=== PATIENT | male | born 1995 | race American Indian/Alaskan Native ===

== ENCOUNTER 2017-09-01 22:52 | Emergency (ER) | payer OTHER ==
[2017-09-02] MEDS ORDERED: DUONEB *Not for PRN Use IH ONE (05:03)
[2017-09-02] MEDS ORDERED: DELTASONE PO ONE (05:04)
[2017-09-02] MEDS ORDERED: PROVENTIL IH ONE (05:04)
--- NOTE | 2017-09-02 05:04 | Emergency Department Report ---
- General Chief Complaint: Upper Respiratory Infection Stated Complaint: COUGHING Time Seen by Provider: 09/02/17 04:21 Source: patient Mode of arrival: Ambulatory Limitations: No Limitations - History of Present Illness Initial Comments: 22-year-old male presents with complaint of productive cough with yellow green mucus. Patient is a smoker. Denies any sore throat chest pain or significant shortness of breath. States he has multiple sick contacts at home. Denies nausea or vomiting. Has not received flu vaccine this season. Speaking in full sentences in no audible wheezing or stridor Complaint: cough Onset/Timin -: days(s) Context: sick contacts Associated Symptoms: denies other symptoms, cough Treatments Prior to Arrival: none - Related Data Previous Rx's Medication Instructions Recorded Last Taken Type Albuterol Sulfate [Ventolin Hfa] 1 puff IH Q4H PRN #1 hfa.aer.ad 09/02/17 Unknown Rx Azithromycin [Zithromax Z-NATE] 250 mg PO QDAY #1 pack 09/02/17 Unknown Rx Naproxen 500 mg PO BID PRN #30 tablet 09/02/17 Unknown Rx Phenylephrine/Dm/Acetaminop/GG 10 ml PO Q4H PRN #1 liquid 09/02/17 Unknown Rx [Mucinex Exlp-Pra-Uyklempxrt Lq] predniSONE [Deltasone] 40 mg PO QDAY #10 tab 09/02/17 Unknown Rx Allergies Allergy/AdvReac Type Severity Reaction Status Date / Time No Known Allergies Allergy Verified 09/01/17 23:14 ED Review of Systems ROS: Stated complaint: COUGHING Other details as noted in HPI Constitutional: denies: chills, fever Eyes: denies: eye pain, eye discharge, vision change ENT: denies: ear pain, throat pain Respiratory: cough. denies: shortness of breath, wheezing Cardiovascular: denies: chest pain, palpitations Endocrine: no symptoms reported Gastrointestinal: denies: abdominal pain, nausea, diarrhea Genitourinary: denies: urgency, dysuria Musculoskeletal: denies: back pain, joint swelling, arthralgia Skin: denies: rash, lesions Neurological: denies: headache, weakness, paresthesias Psychiatric: denies: anxiety, depression Hematological/Lymphatic: denies: easy bleeding, easy bruising ED Past Medical Hx - Past Medical History Previous Medical History?: No - Surgical History Additional Surgical History: T&A in childhood - Social History Smoking Status: Never Smoker Substance Use Type: None - Medications Home Medications: Home Medications Medication Instructions Recorded Confirmed Last Taken Type Albuterol Sulfate [Ventolin Hfa] 1 puff IH Q4H PRN #1 hfa.aer.ad 09/02/17 Unknown Rx Azithromycin [Zithromax Z-NATE] 250 mg PO QDAY #1 pack 09/02/17 Unknown Rx Naproxen 500 mg PO BID PRN #30 tablet 09/02/17 Unknown Rx Phenylephrine/Dm/Acetaminop/GG 10 ml PO Q4H PRN #1 liquid 09/02/17 Unknown Rx [Mucinex Kioy-Xmq-Yirxnhvjyz Lq] predniSONE [Deltasone] 40 mg PO QDAY #10 tab 09/02/17 Unknown Rx ED Physical Exam - General Limitations: No Limitations General appearance: alert, in no apparent distress - Head Head exam: Present: atraumatic, normocephalic - Eye Eye exam: Present: normal appearance, PERRL, EOMI - ENT ENT exam: Present: mucous membranes moist - Neck Neck exam: Present: normal inspection, full ROM - Respiratory Respiratory exam: Present: normal lung sounds bilaterally. Absent: respiratory distress - Cardiovascular Cardiovascular Exam: Present: regular rate, normal rhythm. Absent: systolic murmur, diastolic murmur, rubs, gallop - GI/Abdominal GI/Abdominal exam: Present: soft, normal bowel sounds - Rectal Rectal exam: Present: deferred - Extremities Exam Extremities exam: Present: normal inspection - Back Exam Back exam: Present: normal inspection - Neurological Exam Neurological exam: Present: alert, oriented X3 - Psychiatric Psychiatric exam: Present: normal affect, normal mood - Skin Skin exam: Present: warm, dry, intact, normal color. Absent: rash ED Course Vital Signs 09/01/17 09/02/17 23:11 04:52 Temperature 98.3 F 97.4 F L Pulse Rate 91 H 58 L Respiratory 18 16 Rate Blood Pressure 124/64 Blood Pressure 120/61 [Right] O2 Sat by Pulse 98 98 Oximetry ED Medical Decision Making - Medical Decision Making A/P: URI, acute bronchitis 1-will treat patient symptomatically 2-follow-up with primary care doctor 3-vital signs stable for discharge. Patient states he feels better after symptomatic treatment. Critical care attestation.: If time is entered above; I have spent that time in minutes in the direct care of this critically ill patient, excluding procedure time. ED Disposition Clinical Impression: Acute bronchitis Qualifiers: Bronchitis organism: unspecified organism Qualified Code(s): J20.9 - Acute bronchitis, unspecified Disposition: DC-01 TO HOME OR SELFCARE Is pt being admited?: No Does the pt Need Aspirin: No Condition: Stable Instructions: Acute Bronchitis (ED) Prescriptions: Albuterol Sulfate [Ventolin Hfa] 1 puff IH Q4H PRN #1 hfa.aer.ad PRN Reason: Wheezing Azithromycin [Zithromax Z-NATE] 250 mg PO QDAY #1 pack Naproxen 500 mg PO BID PRN #30 tablet PRN Reason: Pain Phenylephrine/Dm/Acetaminop/GG [Mucinex Bqlo-Odk-Jfixxfksev Lq] 10 ml PO Q4H PRN #1 liquid PRN Reason: Cough predniSONE [Deltasone] 40 mg PO QDAY #10 tab Referrals: [facility] [Outside] - 3-5 Days [facility] [Outside] - 3-5 Days Forms: Work/School Release Form(ED) Time of Disposition: 06:33
[2017-09-02 05:15] VITALS: BP 120/61
--- NOTE | 2017-09-02 05:40 | XRay Report ---
FINAL REPORT EXAM: XR CHEST ROUTINE 2V HISTORY: worsenign cough TECHNIQUE: PA and lateral views of the chest were submitted. FINDINGS: Heart size and mediastinum appear normal. The lungs are clear. Pleural fluid is not seen. The bones and soft tissues do not show any acute changes. IMPRESSION: No active chest disease.
== END 2017-09-02 07:20 | disposition home or self-care (01) ==
LOC: ED 22:52
DX: J20.9 Acute bronchitis, unspecified (principal)
CPT/HCPCS: 71020; 99283; J7512